=== PATIENT | male | born 1980 | race Caucasian/White ===

== ENCOUNTER 2017-04-16 12:49 | Emergency (ER) | payer OTHER ==
--- NOTE | 2017-04-16 13:43 | ERNOTE ---
Upper Extremity HPI - General Time Seen by Provider: 04/16/17 13:38 Source: patient Exam Limitations: no limitations - Immun/Allergies/Home Medications Immunizations: IMMUNIZATION HX Immunizations Up to Date Yes History of Influenza Vaccine No Allergies/Adverse Reactions: Allergies Allergy/AdvReac Type Severity Reaction Status Date / Time No Known Allergies Allergy Verified 04/16/17 13:34 Home Medications: HOME MEDICATIONS Ibuprofen [Motrin] 800 mg PO TID PRN #30 tablet 04/16/17 [Last Taken Unknown] - History of Present Illness Narrative: Patient presents to the emergency room for trauma to his left thumb. Patient hit a hard object with his left thumb. Veins of pain in the thenar region. This happened at work approximately 50 minutes prior to presentation to the emergency room patient has not taken any medication for it. He complains of pain in his left thumb. Review of Systems - Review of Systems Constitutional: Present: no symptoms reported EYE: Present: no symptoms reported ENT: Present: no symptoms reported Respiratory: Present: no symptoms reported Cardiology: Present: no symptoms reported Gastrointestinal/Abdominal: Present: no symptoms reported Genitourinary: Present: no symptoms reported Musculoskeletal: Present: See HPI - Patient's Past Medical History Patient History - Cardiac/Respiratory: Hypertension Patient History - Cancer: No Hx of Cancer Patient History - Surgical Procedures: No surgical history Patient History - Other: None - Social History Living Situations: home Psych History: No pertinent hx Smoking Status: Current every day smoker Alcohol Use: none Drug Use: none - Immunizations Immunizations Up to Date: Yes History of Influenza Vaccine: No Physical Exam - Physical Exam General Appearance: Present: wd/wn, alert, no apparent distress Ears, Nose, Throat: Present: normal ENT inspection Neck: Present: normal inspection Respiratory: Present: no respiratory distress, normal breath sounds, no accessory muscle use, chest nontender, lungs clear Cardiovascular/Chest: Present: regular rate, rhythm, no murmur, normal peripheral pulses Extremity Exam: Present: other - there is swelling of the base of the left thumb in the thenar region. Patient states he is unable to move his thumb. He has pain in the general region. There is no gross deformity. Neurological Exam: Present: alert, oriented, normal mood/affect, no motor/ sensory deficits ED Progress - Vital Signs Vital Signs: Vital Signs 04/16/17 13:25 Temperature 36.7 C Pulse Rate 96 Respiratory 16 Rate Blood Pressure 151/100 O2 Sat by Pulse 97 Oximetry - Progress/Reassessment Chief Complaint: Hand Injury/Pain Plan - Plan Plan: The x-ray does not reveal a fracture. This examiner placed gentle traction on the thumb and a slight pop was felt by the patient and heard by the examiner and patient immediately felt relief and was well able to move his thumb. Departure Clinical Impression: Thumb dislocation Qualifiers: Encounter type: initial encounter Laterality: left Qualified Code(s): S63.105A - Unspecified dislocation of left thumb, initial encounter - Departure Disposition: Home self-care Condition: Good Instructions: Finger or Thumb Dislocation, [id number] Prescriptions: Ibuprofen [Motrin] 800 mg PO TID PRN #30 tablet PRN Reason: Pain
[2017-04-16 14:36] VITALS: BP 148/95
== END 2017-04-16 14:24 | disposition home or self-care (01) ==
LOC: ER 12:49
DX: S63.105A Unspecified dislocation of left thumb, initial encounter (principal); X58.XXXA Exposure to other specified factors, initial encounter; Y93.9 Activity, unspecified; Y92.69 Other specified industrial and construction area as the place of occurrence of the external cause; Y99.0 Civilian activity done for income or pay; Z72.0 Tobacco use